=== PATIENT | female | born 1975 | race Caucasian/White ===

== ENCOUNTER → 2025-02-13 | Outpatient (CLI) | payer OTHER ==
[~2025-02-13] MED LIST: ANTOXYBENA BOTHEARS; Bactrim Ds Tab1 EACH PO; Ciprodex Otic7.5 ML BOTHEARS; IBUP800 PO; OXYC10TA19; Ultram50 MG PO; VENL75ER PO
== END ==
LOC: LAB 18:27 → LAB SHORT 18:27
DX: R30.0 Dysuria (principal)
CPT/HCPCS: 87086